=== PATIENT | female | born 1990 ===

== ENCOUNTER 2021-06-29 14:27 | Inpatient (IN) ==
[2021-06-29] MEDS: Ringers Solution, Lactated 1,000 ML IVC SCH ×2 (14:08→16:27)
[~2021-06-29 14:27] MED LIST: Famotidine 20 MG/2 ML VIAL IVP PRN; Metoclopramide 10 MG/2 ML VIAL IVP PRN; Naloxone 0.4 MG/ML INJ IVP PRN; Ondansetron 4 MG/2 ML VIAL IVP PRN; Ringers Solution, Lactated 1,000 ML ONE
[2021-06-29] MEDS ORDERED: Oxytocin 20 units/ LR 1000 mL 20 UNIT/1,000 ML BAG IVC SCH (14:30)
[2021-06-29 14:51] LABS: Amphetamine Screen,Urine Negative ng/mL (Cutoff=1000); Barbiturate Screen,Urine Negative ng/mL (Cutoff=200); Benzodiazepines Screen,Urine Negative ng/mL (Cutoff=200); Cannabinoid Screen,Urine Negative ng/mL (Cutoff = 50); Cocaine Screen,Urine Negative ng/mL (Cutoff= 300); Opiate Screen,Urine Negative ng/mL (Cutoff=300); Phencyclidine Screen,Urine Negative ng/mL (Cutoff=25)
[2021-06-29 14:54] LABS: Basophils % 0.4 %; Eosinophils % 0.4 %; Hematocrit 36.4 % (35.3-44.9); Hemoglobin 12.1 g/dL (11.5-15.4); Immature Granulocytes % 1.8 % (0-4); Mean Corpuscular HGB Conc 33.2 g/dL (31.6-35.5); Mean Corpuscular Hemoglobin 27.1 pg (28.0-33.3); Mean Corpuscular Volume 81.6 fL (83.0-100.0); Mean Platelet Volume 11.7 fL (9.4-12.4); Monocytes # 0.8 K/mcL (0.0-1.3); Monocytes % 8.1 %; Neutrophils # 6.4 K/mcL (1.6-8.9); Platelet Count 249 K/mcL (140-400); Red Blood Count 4.46 M/mcL (3.82-4.97); Red Cell Distribution Width 14.1 % (11.5-14.5); Segmented Neutrophils % 68.3 %; White Blood Count 9.4 K/mcL (4.3-11.1)
[2021-06-29 16:08] LABS: Influenza A PCR Negative (Negative); Influenza B PCR Negative (Negative); Resp. Syncytial Virus PCR Negative (Negative)
[2021-06-29 17:26] LABS: SARS-CoV-2 by PCR (In House) Positive (Negative)
[2021-06-29] MEDS ORDERED: *HR* Nalbuphine 10 MG/ML AMPUL IV PRN (17:52)
[2021-06-29] MEDS ORDERED: *HR* FentaNYL (PF) 100 MCG/2 ML VIAL EP ONE (18:38)
[2021-06-29] MEDS ORDERED: Ropivacaine/PF 0.2% 20 ML VIAL EP ONE (18:38)
[2021-06-29] MEDS ORDERED: EPHEDrine 50 MG/ML VIAL IVP PRN (18:38)
[2021-06-29] MEDS ORDERED: Epidural Premix (fent/bupiv) 110 ML EP ONE (18:46)
[2021-06-29] MEDS: Epidural Premix (fent/bupiv) 110 ML EP SCH (19:13)
[2021-06-29] MEDS ORDERED: Insulin DETEMIR 100 UNIT/ML X5UNITS SUBQ ONE (21:00)
[2021-06-30] MEDS: Ringers Solution, Lactated 1,000 ML IVC SCH ×2 (03:25→06:12)
[2021-06-30] MEDS: Epidural Premix (fent/bupiv) 110 ML EP SCH (03:27)
[2021-06-30] MEDS ORDERED: *HR* FentaNYL (PF) 100 MCG/2 ML VIAL ONE (04:00)
[2021-06-30] MEDS ORDERED: Insulin DETEMIR 100 UNIT/ML X5UNITS SUBQ ONE (04:00)
[2021-06-30] MEDS ORDERED: Lidocaine 1% 20 ML MDV ONE (07:37)
[2021-06-30] MEDS ORDERED: Prenatal Vit/FA 1 EACH TABLET PO SCH (09:00)
[2021-06-30] MEDS ORDERED: Lanolin 7 G OINT...G. TP PRN (10:54)
[2021-06-30] MEDS ORDERED: Ondansetron ODT 4 MG TAB.RAPDIS SL PRN (10:54)
[2021-06-30] MEDS ORDERED: Oxytocin 20 units/ LR 1000 mL 20 UNIT/1,000 ML BAG IVC ONE (10:54)
[2021-06-30] MEDS ORDERED: Measles/Mumps/Rubella Vacc 0.5 ML VIAL SQ PRN (10:54)
[2021-06-30] MEDS ORDERED: Rho Immune Globulin 1,500 UNIT SYRINGE IM PRN (10:54)
[2021-06-30] MEDS ORDERED: Oxytocin 20 units/ LR 1000 mL 20 UNIT/1,000 ML BAG IVC SCH (10:54)
[2021-06-30] MEDS: Prenatal Vit/FA 1 EACH TABLET PO SCH (11:18)
[2021-06-30] MEDS: Benzocaine/Menthol 56 GM AEROSOL SPRAY TP PRN ×2 (11:18→21:09)
[2021-06-30] MEDS: Acetaminophen 325 MG TABLET PO SCH ×2 (11:18→17:32)
[2021-06-30 11:59] VITALS: O2SAT 97
[2021-06-30] MEDS: Ibuprofen 600 MG TABLET PO SCH ×2 (15:11→21:09)
[2021-07-01] MEDS: Acetaminophen 325 MG TABLET PO SCH ×2 (00:42→11:09)
[2021-07-01] MEDS: Ibuprofen 600 MG TABLET PO SCH ×2 (04:11→11:09)
[2021-07-01 04:41] LABS: Basophils % 0.4 %; Eosinophils # 0.1 K/mcL (0.0-0.6); Eosinophils % 1.2 %; Hemoglobin 10.4 g/dL (11.5-15.4); Immature Granulocytes % 1.5 % (0-4); Lymphocytes # 2.1 K/mcL (0.6-4.6); Lymphocytes % 20.1 %; Mean Corpuscular HGB Conc 32.5 g/dL (31.6-35.5); Mean Corpuscular Volume 83.1 fL (83.0-100.0); Mean Platelet Volume 11.3 fL (9.4-12.4); Monocytes # 0.9 K/mcL (0.0-1.3); Monocytes % 8.3 %; Platelet Count 191 K/mcL (140-400); Red Blood Count 3.85 M/mcL (3.82-4.97); Red Cell Distribution Width 14.6 % (11.5-14.5); Segmented Neutrophils % 68.5 %; White Blood Count 10.2 K/mcL (4.3-11.1)
[2021-07-01 07:41] VITALS: BP 90/54; PULSE 86; TEMP 98
[2021-07-01] MEDS: Prenatal Vit/FA 1 EACH TABLET PO SCH (11:09)
== END 2021-07-01 14:20 | disposition home or self-care (01) | DRG 805 ==
LOC: 1NENULAB → 1NENUOBS 06-30 10:23
PROVIDERS: ADMIT Registered Nurse; ATTEND Registered Nurse